=== PATIENT | female | born 1965 | race Caucasian/White ===

== ENCOUNTER 2023-01-30 19:15 | Emergency (ER) | payer OTHER, SELFPAY ==
[2023-01-30 19:28] VITALS: BP 138/87; PULSE 103; RESP 18; TEMP 36.6; O2SAT 96; BMI 18.3
--- NOTE | 2023-01-30 20:37 | PC.NURSE ---
patient has a stye in right lower eyelid with bruising the the lower eye. denies any trauma. states she was seen by urgent care [facility], told she has a brain infection and sent home with antibiotic. Patient denies any vision changes. she also has a headache and is vomiting
[2023-01-30 21:13] LABS: Basophils Percent Auto 0.2 % (0.2-2.0); Eosinophils Percent Auto 0.2 % (0.9-7.0); Hematocrit 38.9 % (36.0-48.0); Hemoglobin 13.8 g/dL (12.0-16.0); Immature Granulocytes Abs Auto 0.02 10^3/uL (0.00-0.03); Immature Granulocytes Pct Auto 0.2 % (0.0-0.5); Lymphocytes Absolute Auto 1.8 10^3/uL (1.2-3.8); Lymphocytes Percent Auto 22.5 % (20.5-60.0); Mean Corpuscular HGB Conc 35.5 g/dL (29.9-35.2); Mean Corpuscular Hemoglobin 31.7 pg (26.7-34.0); Mean Corpuscular Volume 89.2 fL (81.0-99.0); Mean Platelet Volume 10.2 fL (9.5-13.5); Monocytes Absolute Auto 0.4 10^3/uL (0.3-0.8); Monocytes Percent Auto 4.6 % (1.7-12.0); Neutrophils Absolute Auto 5.9 10^3/uL (1.4-6.5); Neutrophils Percent Auto 72.3 % (43.0-75.0); Platelet Count 256 10^3/uL (150-450); Red Blood Count 4.36 10^6/uL (4.20-5.40); Red Cell Distribution Width 12.5 % (11.0-15.0); White Blood Count 8.1 10^3/uL (4.0-11.0)
[2023-01-30] MEDS: ONDANSETRON 4 MG RAPDIS TABLET SL (21:28)
[2023-01-30 21:31] LABS: Alanine Aminotransferase 12 U/L (14-59); Albumin Globulin Ratio 1.2; Alkaline Phosphatase 75 U/L (46-116); Anion Gap 11.5; Aspartate Amino Transferase 32 U/L (15-37); BUN Creatinine Ratio 12.1; Bilirubin Total 0.4 mg/dL (0.2-1.0); Calcium 9.1 mg/dL (8.5-10.1); Carbon Dioxide 28.1 mmol/L (21.0-32.0); Chloride 103 mmol/L (98-107); Estimated GFR (African America >60 (>=60); Estimated GFR (Non-African Ame >60 (>=60); Globulin 3.3 g/dL; Glucose 105 mg/dL (74-106); Potassium 4.6 mmol/L (3.5-5.1); Sodium 138 mmol/L (136-145); Total Protein 7.3 g/dL (6.4-8.2)
--- NOTE | 2023-01-30 22:09 | PC.NURSE ---
dc instructions complete, pt gait steady to exit
--- NOTE | 2023-01-31 01:21 | ED_ITS ---
HPI - Eye Problem General Chief complaint: Eye Problems Stated complaint: RT EYE SWELLING Time Seen by Provider: 01/30/23 20:27 Source: patient and family Mode of arrival: walk-in Limitations: no limitations History of Present Illness HPI Narrative: The patient is coming to the ER with a right eye swelling, apparently she presented to an urgent care around the hospital and she got the understanding that she might have an infection in her brain and she is presenting to us with that concern She already was started on tobramycin eyedrops as well as Augmentin and her swelling is already better No fever no chills no other concerns Related Data Home Medications Medication Instructions Recorded Confirmed albuterol sulfate 90 mcg/actuation 1 inh inhalation Q6H 01/30/23 01/30/23 aerosol inhaler buprenorphine 8 mg-naloxone 2 mg 1 film buccal DAILY 01/30/23 01/30/23 sublingual film (Suboxone) ipratropium bromide 17 1 inh inhalation Q6H 01/30/23 01/30/23 mcg/actuation HFA aerosol inhaler (Atrovent HFA) Previous Rx's Medication Instructions Recorded famotidine 20 mg tablet (Pepcid) 20 mg PO BID #10 tabs 01/30/23 ondansetron HCl 4 mg tablet 4 mg PO Q8H 24 hours #3 tabs 01/30/23 Allergies Allergy/AdvReac Type Severity Reaction Status Date / Time No Known Drug Allergies Allergy Verified 01/30/23 19:34 Review of Systems ROS Status of ROS 10 or more systems reviewed and unremarkable except as noted in history and below Exam Narrative Exam Narrative: Nurses notes and vital signs reviewed and patient is not hypoxic. General: Well-appearing and in no apparent distress. Skin: Warm, dry, no pallor noted. No rash. Head: Normocephalic, atraumatic. Neck: Supple, non-tender. Eye: Pupils are equal, round and EOMI. No scleral icterus. The patient have a small stye on the medial aspect of the right lower eyelid on the right side and the patient also had a small mild edema of the lower eyelid with noted limitation of movement of the ocular muscles Ears, Nose, Mouth, and Throat: TM are clear, no nasal mucosal hypertrophy. Oral mucosa is moist, no posterior oropharynx erythema, uvula is mid-line Cardiovascular: Regular Rate and Rhythm without murmur, gallop or rub. Respiratory: No accessory muscle use or respiratory distress. Lungs are clear to auscultation, no wheezing, rales or rhonchi Chest Wall: no tenderness Back: No midline thoracic or lumbar vertebral tenderness. No CVA tenderness Musculoskeletal: normal ROM, no calf or popliteal tenderness, no lower extremity edema/swelling GI: Abdomen is soft, non-distended. Normal bowel sounds. No masses appreciated. No tenderness to palpation. No rebound, guarding, or rigidity noted. Neurological: A&O x4. No cranial nerve dysfunction observed. No truncal ataxia. Moves all extremities. Sensation intact. Psychiatric: Cooperative and interactive. Normal mood and affect. Constitutional Vital Signs, click to edit/add: Last Vital Signs Temp 97.8 F 01/30/23 19:28 Pulse 103 H 01/30/23 19:28 Resp 18 01/30/23 19:28 BP 138/87 H 01/30/23 19:28 Pulse Ox 96 01/30/23 19:28 O2 Del Method Room Air 01/30/23 19:28 Course Vital Signs Vital signs: Vital Signs Temperature 97.8 F 01/30/23 19:28 Pulse Rate 103 H 01/30/23 19:28 Respiratory Rate 18 01/30/23 19:28 Blood Pressure 138/87 H 01/30/23 19:28 Pulse Oximetry 96 01/30/23 19:28 Oxygen Delivery Method Room Air 01/30/23 19:28 Temperature 97.8 F 01/30/23 19:28 Pulse Rate 103 H 01/30/23 19:28 Respiratory Rate 18 01/30/23 19:28 Blood Pressure 138/87 H 01/30/23 19:28 Pulse Oximetry 96 01/30/23 19:28 Oxygen Delivery Method Room Air 01/30/23 19:28 MDM - Eye Problem MDM Narrative Medical decision making narrative: The patient examination is completely benign except for the stye on mild edema of the lower lid on the right side that is resolving at the picture of the patient's showed me The patient CBC and chemistry shows no acute significant pathology and she was discharged to continue her treatment The patient is to follow up with primary care physician in next 2-3 days or to return to the emergency department should any of the signs or symptoms worsen or new symptoms develop. The patient agrees with the following Diagnosis and Treatment plan and the patient will be discharged home. Lab Data Labs: Lab Results 01/30/23 Range/Units 20:45 WBC 8.1 (4.0-11.0) 10^3/uL RBC 4.36 (4.20-5.40) 10^6/uL Hgb 13.8 (12.0-16.0) g/dL Hct 38.9 (36.0-48.0) % MCV 89.2 (81.0-99.0) fL MCH 31.7 (26.7-34.0) pg MCHC 35.5 H (29.9-35.2) g/dL RDW 12.5 (11.0-15.0) % Plt Count 256 (150-450) 10^3/uL MPV 10.2 (9.5-13.5) fL Neut % (Auto) 72.3 (43.0-75.0) % Lymph % (Auto) 22.5 (20.5-60.0) % Woodward % (Auto) 4.6 (1.7-12.0) % Eos % (Auto) 0.2 L (0.9-7.0) % Baso % (Auto) 0.2 (0.2-2.0) % Neut # (Auto) 5.9 (1.4-6.5) 10^3/uL Lymph # (Auto) 1.8 (1.2-3.8) 10^3/uL Woodward # (Auto) 0.4 (0.3-0.8) 10^3/uL Eos # (Auto) 0.0 (0.0-0.7) 10^3/uL Baso # (Auto) 0.0 (0.0-0.1) 10^3/uL Abs Immat Gran (auto) 0.02 (0.00-0.03) 10^3/uL Imm/Tot Granulo (auto) 0.2 (0.0-0.5) % Sodium 138 (136-145) mmol/L Potassium 4.6 (3.5-5.1) mmol/L Chloride 103 (98-107) mmol/L Carbon Dioxide 28.1 (21.0-32.0) mmol/L Anion Gap 11.5 BUN 8.0 (7.0-18.0) mg/dL Creatinine 0.66 (0.55-1.02) mg/dL Est GFR ( Amer) >60 (>=60) Est GFR (Non-Af Amer) >60 (>=60) BUN/Creatinine Ratio 12.1 Glucose 105 (74-106) mg/dL Calcium 9.1 (8.5-10.1) mg/dL Total Bilirubin 0.4 (0.2-1.0) mg/dL AST 32 (15-37) U/L ALT 12 L (14-59) U/L Alkaline Phosphatase 75 (46-116) U/L Total Protein 7.3 (6.4-8.2) g/dL Albumin 4.0 (3.4-5.0) g/dL Globulin 3.3 g/dL Albumin/Globulin Ratio 1.2 Discharge Plan Discharge Chief Complaint: Eye Problems Clinical Impression: Strony, Gastritis Patient Disposition: Home, Self-Care Time of Disposition Decision: 21:55 Condition: Good Mode of Transportation: Private Vehicle Prescriptions / Home Meds: New famotidine [Pepcid] 20 mg tablet 20 mg PO BID Qty: 10 0RF ondansetron HCl 4 mg tablet 4 mg PO Q8H 1 Days Qty: 3 0RF No Action buprenorphine-naloxone [Suboxone] 8-2 mg film 1 film buccal DAILY Atrovent HFA 17 mcg/actuation HFA aerosol inhaler 1 inh inhalation Q6H albuterol sulfate 90 mcg/actuation HFA aerosol inhaler 1 inh inhalation Q6H Instructions: Stefan (ED) Stand Alone Forms: Portal Instructions Referrals: Physician,Non-Staff, MD [Primary Care Provider] - 1 week Discharge Date/Time: 01/30/23 22:10
== END 2023-01-30 22:10 | disposition home or self-care (01) ==
PROVIDERS: Emergency Provider Emergency Medicine
DX: K29.70 Gastritis, unspecified, without bleeding (principal); Z79.899 Other long term (current) drug therapy; H00.012 Hordeolum externum right lower eyelid
CPT/HCPCS: 36415; 80053; 85025; 99284